=== PATIENT | male | born 1940 | race Caucasian/White ===

== ENCOUNTER 2021-05-02 02:59 | Emergency (ER) | payer MEDICARE, BC ==
[2021-05-02 04:19] LABS: CHLORIDE,CL 107 mmol/L (98-107); SODIUM,NA 143 mmol/L (136-145)
[2021-05-02 05:05] VITALS: BP 165/77; PULSE 57
== END 2021-05-02 04:41 ==
LOC: VM.ED 02:59
DX: G56.31 Lesion of radial nerve, right upper limb (principal); I10 Essential (primary) hypertension; E66.9 Obesity, unspecified; Z68.39 Body mass index [BMI] 39.0-39.9, adult; Z88.0 Allergy status to penicillin; Z79.01 Long term (current) use of anticoagulants
CPT/HCPCS: 36415; 80053; 84484; 85379; 93005; 93010; 99284; 99285-25

== ENCOUNTER 2022-05-03 07:09 | Day surgery (SDC) | payer MEDICARE, BC ==
[~2022-05-03 07:09] MED LIST: Lactated Ringers 1,000 ML IV SCH; Sodium Chloride 0.9% 10 ML Syringe FLUSH PRN
[2022-05-03] MEDS ORDERED: Propofol 200 MG/20 ML SDV ONE ×3 (08:12→08:56)
[2022-05-03] MEDS ORDERED: fentaNYL 100 MCG/2 ML SDV ONE (08:12)
[2022-05-03 10:02] VITALS: BP 161/84; PULSE 86
== END 2022-05-03 10:55 | disposition home or self-care (01) ==
LOC: VM.SDS 07:09
PROVIDERS: ATTEND Family Medicine
DX: Z12.11 Encounter for screening for malignant neoplasm of colon (principal); D12.6 Benign neoplasm of colon, unspecified; K64.8 Other hemorrhoids; I10 Essential (primary) hypertension; G47.33 Obstructive sleep apnea (adult) (pediatric); R73.01 Impaired fasting glucose; F32.A Depression, unspecified; M19.90 Unspecified osteoarthritis, unspecified site; F41.9 Anxiety disorder, unspecified; E66.09 Other obesity due to excess calories; E29.1 Testicular hypofunction; C61 Malignant neoplasm of prostate; Z98.890 Other specified postprocedural states; Z86.010 Personal history of colon polyps; Z79.01 Long term (current) use of anticoagulants; Z88.0 Allergy status to penicillin; Z79.899 Other long term (current) drug therapy; Z68.39 Body mass index [BMI] 39.0-39.9, adult
CPT/HCPCS: 00811; 36415; 85610; 88305; J2704; J3010; J7120